=== PATIENT | female | born 1990 | race Two or more races ===

== ENCOUNTER → 2019-12-09 | Outpatient (CLI) | payer MEDICAID ==
--- NOTE | 2019-12-09 14:32 | RADIOLOGY REPORT (SQ) ---
EXAM DESCRIPTION: U/S OB 14+ TRNABD 1GES W/O DOP IMAGES COMPLETED DATE/TIME: 12/09/2019 2:07 pm REASON FOR STUDY: Z34.82 ENCOUNTER FOR SUPRVSN OF NORMAL , SECOND TRIMESTER Z34.82 ENCOUNT ER FOR SUPRVSN OF NORMAL , SECOND TRI COMPARISON: None. TECHNIQUE: Static and Dynamic grayscale imaging performed of gravid uterus using transabdominal appr oach. Additional selected color Doppler and spectral images recorded. All stored on PACS. LIMITATIONS: The examination is limited due to patient's body habitus, position and gestationa l age. FINDINGS: FETUSES SEEN:1 EGA: 26 weeks 6 days Calculated using BPD,FL,HC,AC documented on images. No discrepancy with clinica l dates. GINNA: 03/10/2020 EFW: 911 grams PERCENTILE: Not given. JACKIE: LVP--- 3.5 cm x 4.2 cm PLACENTA: Anterior. PRESENTATION: Transverse. head to maternal right. ANATOMY: HEART RATE: 157 beats per minute. FOUR CHAMBER HEART: Suboptimal visualization. THREE VESSEL CORD: Yes. CORD INSERTION: Visualized. KIDNEYS AND BLADDER: Suboptimal visualization of the kidneys. Bladder visualized. Appear normal. STOMACH: Visualized. Appears normal. SPINE: Suboptimal visualization. BRAIN AND LATERAL VENTRICLES: Visualized. Appear normal. OTHER: No other significant finding. MATERNAL ADNEXA: Maternal ovaries not visualized. CERVICAL LENGTH: 4.4 cm. Closed. OTHER: No other significant finding. IMPRESSION: LIVING INTRAUTERINE . ESTIMATED GESTATIONAL AGE: 26 weeks 6 days Please see above. Trimester of : Second trimester - 13 weeks 1 day to 27 weeks 6 days. TECHNICAL DOCUMENTATION: JOB ID: [id number] [employer]- All Rights Reserved Reading location - IP/workstation name: [email or web address]
== END ==
LOC: RAD 13:06
PROVIDERS: ATTEND Midwife
DX: O32.2XX0 Maternal care for transverse and oblique lie, not applicable or unspecified (principal); Z3A.26 26 weeks gestation of pregnancy
CPT/HCPCS: 76805